=== PATIENT | female | born 1980 | race Caucasian/White ===

== ENCOUNTER 2018-11-12 21:29 | Emergency (ER) | payer OTHER ==
[2018-11-12] MEDS ORDERED: SODIUM CHLORIDE 0.9% 1,000 ML IV STA (21:47)
--- NOTE | 2018-11-12 21:53 | ED ---
General Adult HPI - General Chief complaint: Fall Stated complaint: Fall, Hit head poss stroke Source: family Mode of arrival: wheelchair Limitations: no limitations - Related Data Allergies Allergy/AdvReac Type Severity Reaction Status Date / Time shellfish derived [Shellfish] Allergy Anaphylaxis Verified 11/12/18 21:35 Review of Systems ROS Statement: Those systems with pertinent positive or pertinent negative responses have been documented in the HPI. ROS Other: All systems not noted in ROS Statement are negative. Past Medical History Past Medical History: Asthma Additional Past Medical History / Comment(s): Migraines. History of Any Multi-Drug Resistant Organisms: None Reported Past Surgical History: No Surgical Hx Reported Past Psychological History: Bipolar Smoking Status: Never smoker Past Alcohol Use History: Occasional Past Drug Use History: Cocaine General Exam Limitations: no limitations Course Vital Signs 11/12/18 11/12/18 11/12/18 21:32 21:35 21:48 Temperature 99.6 F Pulse Rate 112 H 100 101 H Respiratory 18 18 20 Rate Blood Pressure 135/96 133/84 132/88 O2 Sat by Pulse 100 97 97 Oximetry 11/12/18 11/12/18 11/12/18 22:00 22:15 22:17 Temperature Pulse Rate 99 108 H 84 Respiratory 18 20 20 Rate Blood Pressure 135/85 152/100 108/97 O2 Sat by Pulse 99 97 99 Oximetry Medical Decision Making - Medical Decision Making Dictation was produced using [employer] dictation software. please excuse any grammatical, word or spelling errors. Chief Complaint: 38-year-old female past medical history of asthma, bipolar disease and illicit drug abuse presents after fall and dysarthria. History of Present Illness: Is a 38-year-old female. She was brought in by a friend. Apparently she was called earlier today and was found to be dysarthric , aphasic and confused. She was last known normal last night. Patient is at baseline normal functioning. Patient does take Suboxone regularly. Patient also does abuse cocaine. According to friends they don't know if she is a current IV drug user. Friend called and found where she was. She found her at home on the ground. She did report that she fall. The ROS documented in this emergency department record has been reviewed and confirmed by me. Those systems with pertinent positive or negative responses have been documented in the HPI. All other systems are other negative and/or noncontributory. PHYSICAL EXAM: General Impression: Acute distress HEENT: Normocephalic atraumatic, extra-ocular movements intact, pupils equal and reactive to light bilaterally, mucous membranes moist. Cardiovascular: Mild tachycardia, no murmurs Chest: Lungs clear to auscultation bilaterally, no rhonchi, no wheeze, no rales Abdomen: Bowel sounds present, abdomen soft, non-tender, non-distended, no organomegaly Musculoskeletal: Pulses present and equal in all extremities, no peripheral edema Motor: Dense paralysis of the left upper or left lower extremity Neurological: Gaze deficit with predilection to the right and incomplete abduction of the left pupil. She does have left lower face paralysis, left upper and left lower extremity paralysis with left upper extremity contracture, there is positive clonus of the right lower plantar joint, patient is dysarthric , aphasic Skin: Intact with no visualized rashes Psych: Normal affect and mood ED course: 38-year-old female found down at home. Patient having strokelike symptoms. Vital signs upon arrival shows heart rate of 112, rest of vital signs within acceptable limits. Patient given NIH of 27. Code stroke was paged. CT and CT angios obtained. Patient is outside the window for TPA. CT without contrast was performed showing large ischemic area to the right hemispheres. I received a call from radiology recommends patient be transferred for possible hemicraniectomy for other neurosurgical procedure. There is some shift at the moment. Patient is maintaining her airway at this point. 18-gauge IV axis was achieved using ultrasound guidance. EKG is benign. Patient be transferred to [facility]. Accepting doctor is Dr. Chávez. Pending labs and plain films. EKG interpretation: Ventricular rate 91, sinus rhythm, NJ interval 102, QRS 94, QTc 42. No NJ prolongation, no QTC prolongation, no ST or T-wave changes noted. Overall, this EKG is unremarkable - Lab Data Lab Results 11/12/18 Range/Units 22:03 POC Glucose (mg/dL) 122 H (75-99) mg/dL POC Glu [employer] Claims Analyst Jocelyn Kat Disposition Clinical Impression: Stroke Disposition: OTHER INSTITUTION NOT DEFINED Condition: Critical Referrals: None,Stated [Primary Care Provider] - 1-2 days Time of Disposition: 22:25 - Out of Hospital Transfer - Req. Specs Out of Hospital Transfer - Requested Specifics: Other Emergency Center ([facility])
[2018-11-12 22:05] LABS: Glucose,Whole Blood 122 mg/dL (75-99)
[2018-11-12 22:15] VITALS: RESP 20
--- NOTE | 2018-11-12 22:20 | CT ---
EXAMINATION TYPE: CT brain marito bailey con DATE OF EXAM: 11/12/2018 COMPARISON: None HISTORY: CODE STROKE NEURO DEFICITS CT DLP: 1269.8 mGycm Automated exposure control for dose reduction was used. TECHNIQUE: CT scan of the head and cervical spine are performed without contrast. FINDINGS: There is large area of hypodensity involving the right frontal lobe extending into the ri ght parietal lobe. There is very slight mass effect. There is also hypodensity in the right caudate n ucleus. There is no evidence of intracranial hemorrhage. The calvarium is intact. The cervical vertebra have normal spacing and alignment. Posterior elements are intact. Facet joints are intact. Skull base is intact. IMPRESSION: There is evidence of a large subacute infarct right frontal lobe in the right anterior cerebral arter y distribution. No hemorrhage seen. Negative CT scan cervical spine.
[2018-11-12 22:25] LABS: Anisocytosis Slight; HCT 33.6 % (34.0-46.0); HGB 9.7 gm/dL (11.4-16.0); Hypochromasia Marked; MCH 19.3 pg (25.0-35.0); MCHC 28.9 g/dL (31.0-37.0); MCV 66.7 fL (80.0-100.0); Microcytosis Marked; Platelet Count 694 k/uL (150-450); RBC 5.04 m/uL (3.80-5.40); WBC 14.4 k/uL (3.8-10.6)
[2018-11-12 22:28] VITALS: BP 109/87; PULSE 107; TEMP 97.7
[2018-11-12 22:34] LABS: Albumin 4.8 g/dL (3.5-5.0); Anion Gap 12 mmol/L; Calcium 10.3 mg/dL (8.4-10.2); Carbon Dioxide 21 mmol/L (22-30); Chloride 104 mmol/L (98-107); Glucose 131 mg/dL (74-99); INR 0.9 (<1.2); Partial Thromboplastin Time 22.9 sec (22.0-30.0); Prothrombin Time 10.2 sec (9.0-12.0); Sodium 137 mmol/L (137-145); Total Bilirubin 0.7 mg/dL (0.2-1.3); Total Protein 8.1 g/dL (6.3-8.2)
[2018-11-12 22:35] LABS: Amorphous Sediment,Urine Rare /hpf; Appearance,Urine Clear (Clear); Bilirubin,Urine Negative (Negative); Blood,Urine Negative (Negative); Color,Urine Yellow; Glucose,Urine (UA) Negative (Negative); Ketones,Urine 4+ (Negative); Leukocyte Esterase,Urine Negative (Negative); Mucus,Urine Occasional /hpf; Nitrite,Urine Negative (Negative); Protein,Urine 1+ (Negative); RBC,Urine <1 /hpf (0-5); Specific Gravity,Urine 1.026 (1.001-1.035); Squamous Epithelial Cell,Urine 2 /hpf (0-4)
[2018-11-12 22:39] LABS: Anisocytosis (M) Present; Hypochromasia (M) Present; Lymphocytes # (M) 0.86 k/uL (1.0-4.8); Monocytes # (M) 0.43 k/uL (0-1.0); Neutrophils % (M) 91 %; Nucleated Red Blood Cells 0 /100 WBC (0-0); Total Cells Counted 100
[2018-11-12 22:40] LABS: ALT 43 U/L (9-52); AST 53 U/L (14-36); Alkaline Phosphatase 75 U/L (38-126); Blood Urea Nitrogen 25 mg/dL (7-17); Poikilocytosis (M) Present; Potassium 4.4 mmol/L (3.5-5.1)
[2018-11-12 22:43] LABS: Amphetamine Screen,Urine Not Detected (NotDetected); Barbiturate Screen,Urine Not Detected (NotDetected); Benzodiazepines Screen,Urine Detected (NotDetected); Cocaine Screen,Urine Detected (NotDetected); Methadone Screen, Urine Not Detected (NotDetected); Opiate Screen,Urine Not Detected (NotDetected); Oxycodone Screen, Urine Not Detected (NotDetected); Phencyclidine Screen,Urine Not Detected (NotDetected); Tricyclic Antidepressant,Urine Not Detected (NotDetected); Urn Cannabinoid Scrn Not Detected (NotDetected)
[2018-11-12 22:44] LABS: Creatine Kinase 421 U/L (30-135)
[2018-11-12 22:57] LABS: Creatine Kinase MB 4.1 ng/mL (0.0-2.4); Troponin I <0.012 ng/mL (0.000-0.034)
== END 2018-11-12 22:30 | disposition other institution (70) ==
LOC: EC 21:29 → SUPCPDRO 21:29 → EC 22:30
DX: I63.9 Cerebral infarction, unspecified (principal); R29.727 NIHSS score 27; Z86.69 Personal history of other diseases of the nervous system and sense organs; Z90.13 Acquired absence of bilateral breasts and nipples
CPT/HCPCS: 36415; 93005; 80053; 82550; 82553; 84484; 85025; 85610; 85730; 81001; 80306; 72125; 70450; 99285; 51702; L0120